=== PATIENT | male | born 1975 | race Caucasian/White ===

== ENCOUNTER 2018-05-05 10:41 | Emergency (ER) | payer MEDICAID ==
[~2018-05-05] VITALS: Ht 182.9 cm; Wt 118.2 kg
[2018-05-05 11:03] VITALS: BP 125/761; Ht 182.9 cm; Wt 118.2 kg
[2018-05-05] MEDS ORDERED: VOLTAREN75 MG PO (13:05)
[2018-05-05] MEDS ORDERED: AUGMENTIN 875-11 TAB PO (13:05)
== END 2018-05-05 13:50 | disposition home or self-care (01) ==
LOC: D.ER 10:41
DX: S81.852A Open bite, left lower leg, initial encounter (principal); W54.0XXA Bitten by dog, initial encounter; Y93.89 Activity, other specified; Y92.89 Other specified places as the place of occurrence of the external cause